=== PATIENT | female | born 1990 | race Caucasian/White ===

== ENCOUNTER 2024-05-03 15:14 | Outpatient (CLI) | payer BC, OTHER, SELFPAY ==
--- NOTE | ~2024-05-03 | US_ITS ---
EXAMINATION: US soft tissue LE RT DATE: 05/03/2024 15:39 INDICATION: Localized swelling, mass and lump, right lower limb. TECHNIQUE: Multiple grayscale and Doppler ultrasound images of the right lower limb were obtained. COMPARISON: None FINDINGS: There is no abnormal mass in the patient's area of concern in right lower limb. IMPRESSION: 1. No abnormal mass in the patient's area of concern in right lower limb. Reviewed, dictated and finalized at location A.
== END 2024-05-03 15:15 ==
PROVIDERS: PCP Registered Nurse; Visit Provider Registered Nurse
DX: R22.41 Localized swelling, mass and lump, right lower limb (principal)
CPT/HCPCS: 76882

== ENCOUNTER 2025-06-08 08:59 | Emergency (ER) | payer BC, OTHER, SELFPAY ==
--- OUTSIDE RECORDS SUMMARY | 2025-06-08 09:04 | XMS_ITS | Encounter Summary ---
Author Organization [facility] Address [address] [place] [address] Care Team Providers Care Advertisement Compositor Name Role Phone Kyle Rolle MD Unavailable [phone] Heather Roger NP Primary Care Provider [phone] Encounter Details Date Type Department Care Team (Latest Contact Info) Description 10/19/2024 Bill.Forwardt Message Enc [facility] Multispecialty Care - [place] [address] [place], [place] [id number] Heather Roger NP [address] [place] [address] Shot for migraines Social History Tobacco Use Types Packs/Day Years Used Date Smoking Tobacco: Never Smokeless Tobacco: Never Alcohol Use Standard Drinks/Week Comments Not Currently 0 (1 standard drink = 0.6 oz pur e alcohol) PHQ-2 Answer Date Recorded Patient Health Questionnaire-2 Score 0 03/06/2023 Comments No Sex and Gender Information Value Date Recorded Sex Assigned at Female 01/19/2025 9:48 AM RETAIL MANAGER IN TRAINING Legal Sex Female 11:05 PM CDT Gender Identity Female 01/21/2025 3:09 PM RETAIL MANAGER IN TRAINING Sexual Orientation Straight 01/21/2025 3: 09 PM RETAIL MANAGER IN TRAINING 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 [place] [address] Heather Roger NP [address] [place] [address] documented as of this encounter Visit Diagnoses Not on filedocumented in this encounter Additional Health Concerns Infection Onset Date Last Indicated Resolved Time Respiratory Rule Out 03/04/2025 03/04/2025 025 12:00 PM CDT documented as of this encounter Care Teams Advertisement Compositor Relationship Specialty Start Date End Date Heather Roger NP [address] [place] [address] PCP - General NURSE PRACTITIONER 09/17/24 Kyle Rolle MD [facility] [address] [place] [address] [place] Guard Chief CARDIOVASCULAR DISEASE 05/01/16 documented as of this encounter
--- OUTSIDE RECORDS SUMMARY | 2025-06-08 09:04 | XMS_ITS | Referral Summary ---
Author Organization [facility] Address [address] [place] [id number] Care Team Providers Care Child Development Teacher Name Role Phone Heather Roger NP Primary Care Provider [phone] Allergies No known active allergies Medications ibuprofen (ADVIL,MOTRIN) 800 mg tablet Take 1 tablet (800 mg total) by mouth 3 (three) times a day 21 tablet 05/22/2019 Active Social History Tobacco Use Types Packs/Day Years Used Date Smoking Tobacco: Never Smokeless Tobacco: Never Personal Safety Answer Date Recorded Getting School Help Needed Not on file 07/18 Comments No Sex and Gender Information Value Date Recorded Sex Assigned at Not on file Legal Sex Female 12:54 PM EMBROIDERY SUPERVISOR Gender Identity Not on file Sexual Orientation Not on file Last Filed Vital Signs Vital Sign Reading Time Taken Comments Blood Pressure 117/58 06/23/2023 6:28 PM CDT Pulse 61 06/23/2023 6:28 PM CDT Temperature 36.6 C (97.8 F) 06/23/2023 6:28 PM CDT Respiratory Rate 16 06/23/2023 6:28 PM CDT Oxygen Saturation 99% 06/23/2023 6:28 PM CDT Inhaled Oxygen Concentration - - Weight 121.1 kg (267 lb) 06/23/2023 1:38 PM CDT Height 154.9 cm (5' 1) 05/22/2019 6:19 PM CDT Body Mass Index 50.45 05/22/2019 6:19 PM CDT Plan of Treatment Not on file Insurance [employer] [place] Sub[place] Plan / Payer (Ef fective 2017-Present) Name:Yoana Woodruff Relation to Subscriber:Self Name:Yoana Woodruff Payer ID:[id number] (NAIC) Type:BC OTHER Address: [address] [place] [id number] [place] [address] Care Teams Child Development Teacher Relationship Specialty Start Date End Date Heather Roger NP [address] [place] [address] (work) PCP - General Internal Medicine 10/20/24
--- OUTSIDE RECORDS SUMMARY | 2025-06-08 09:04 | XMS_ITS | Encounter Summary ---
Author Organization [facility] Address [address] [place] [address] Care Team Providers Care Associate Professor Of Surgery Name Role Phone Kyle Rolle MD Unavailable [phone] GANG SUPERVISOR Primary Care Provider [phone] None, Provider Primary Care Provider Unavaila ble Heather Roger NP Primary Care Provider [phone]- [phone] Encounter Details Date Type Department Care Team (Late st Contact Info) Description 09/05/2020 Student Loan Herot Message Enc [facility] Family & Internal Medicine [address] [place] [address] Teresa Johnson APNP [facility] [place] [address] Follow Up/Update Social History Tobacco Use Types Packs/Day Years Used Date Smoking Tobacco: Never Smokeless Tobacco: Never Alcohol Use Standard Drinks/Week Comments No 0 (1 standard drink = 0.6 oz pur e alcohol) Comments No Sex and Gender Information Value Date Recorded Sex Assigned at Female 01/19/2025 9:48 AM HIRED WORKER Legal Sex Female 11:05 PM CDT Gender Identity Female 01/21/2025 3:09 PM HIRED WORKER Sexual Orientation Straight 01/21/2025 3: 09 PM HIRED WORKER 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 No / Unsure 08/29/2020 8:43 AM CDT documented as of this encounter Progress Notes * Merle Rios RN - 09/07/2020 9:50 AM CDT Denies the sore throat. Yes she started the medication. * CHRIS Jimenez - 09/06/2020 1:57 PM CDT I'm confused---she has a sore throat or she doesn't? Did she start the GERD medicine? * Merle Rios RN - 09/06/2020 12:10 PM CDT Does the patient report a cough? No Does the patient have a fever? No Does the patient have shortness of breath? No Does the patient have other comorbidities? Persistent headaches, TERENCE, HTN, GERD, Obesity Did the patient travel in last 30 days? No Does the patient report body aches: no Does the patient report Chills: no Does the patient report diarrhea: no Does the patient report a headache: not different normal Sore throat: no Did the patient travel to a COVID-19 affected area? No Has the patient been in contact with someone who has had a cough, fever, or traveled? No Has the patient been exposed to a confirmed positive COVID-19 case? No She has to spray a heavy duty disinfectant every day at work and it is a strong bleach smell and she is wondering if this is irritating her throat. documented in this encounter Plan of Treatment Upcoming Encounters Date Type Department Care Team (Late st Contact Info) Description 08/22/2025 10:00 AM CDT Office Visit [facility] Multispecialty Care - [address] [place] [address] Heather Roger NP [address] [place] [address] documented as of this encounter Visit Diagnoses Not on filedocumented in this encounter Additional Health Concerns Infection Onset Date Last Indicated Resolved Time COVID-19 Rule Out 12/04/2022 12/04/2022 12/04/2022 9:20 AM HIRED WORKER COVID-19 Rule Out 12/04/2022 12/04/2022 12/05/2022 2:30 AM HIRED WORKER COVID-19 Rule Out 09/17/2024 09/17/2024 09/17/2024 2:46 PM CDT Respiratory Rule Out 03/04/2025 03/04/2025 025 12:00 PM CDT documented as of this encounter Care Teams Associate Professor Of Surgery Relationship Specialty Start Date End Date Heather Roger, ROAD GANG SUPERVISOR [address] [facility] [address] [place] [address] PCP - General NURSE PRACTITIONER 08/11/24 08/22/24 None, MD Geovanni PCP - General UNKNOWN PHYSICIAN SPECIALTY 08/01/24 08/10/24 Heather Roger, CELESTINE [address] [facility] [address] [place] [address] PCP - General NURSE PRACTITIONER 09/17/24 Kyle Rolle MD [facility] [address] [place] [address] [place] Firer/Fireman CARDIOVASCULAR DISEASE 05/01/16 documented as of this encounter
--- OUTSIDE RECORDS SUMMARY | 2025-06-08 09:04 | XMS_ITS | Clinical Summary ---
Author Organization [facility] Address [address] Hulln: Epic Prelude ADT AKILAH GILMAN [address] Care Team Providers Care Actuary Name Role Phone Unavailable Primary Care Provider Unavailabl e Social History Tobacco Use Types Packs/Day Years Used Date Smoking Tobacco: Never Assessed Comments Unknown Sex and Gender Information Value Date Recorded Sex Assigned at Not on file Legal Sex Female 1:43 AM CDT Gender Identity Not on file Sexual Orientation Not on file Plan of Treatment Health Maintenance Due Date Last Done Comments DTAP/TDAP/TD VACCINES (1 - Tdap) 2008 HEPATITIS B VACCINES (1 of 3 - 19+ 3-dose series) 2008 HPV/Cotest (21-29) 2010 CERVICAL CANCER SCREENING 2019 HPV/Cotest (30-65) 2019 PAP SMEAR 2019 INFLUENZA VACCINE (#1) 2025 HPV VACCINES Aged Out No longer eligi ble based on patient's age to complete this topic
--- OUTSIDE RECORDS SUMMARY | 2025-06-08 09:04 | XMS_ITS | Encounter Summary ---
Author Organization [facility] Address [address] [place] [address] Care Team Providers Care Lead Programmer Name Role Phone Kyle Rolle MD Unavailable [phone] Heather Roger ADULT CARE MANAGER Primary Care Provider [phone] None, Provider Primary Care Provider Unavaila ble Heather Roger NP Primary Care Provider [phone] Encounter Details Date Type Department Care Team (Late st Contact Info) Description 01/15/2019 Abstract [facility] at [address] [address] Priti Parker MA Social History Tobacco Use Types Packs/Day Years Used Date Smoking Tobacco: Never Smokeless Tobacco: Never Alcohol Use Standard Drinks/Week Comments No 0 (1 standard drink = 0.6 oz pur e alcohol) Comments Unknown Sex and Gender Information Value Date Recorded Sex Assigned at Female 01/19/2025 9:48 AM DINING ROOM SERVER Legal Sex Female 11:05 PM CDT Gender Identity Female 01/21/2025 3:09 PM DINING ROOM SERVER Sexual Orientation Straight 01/21/2025 3: 09 PM DINING ROOM SERVER 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 Not on file Not on file Not on file Not on file Not on file Not on file documented as of this encounter Plan of Treatment Upcoming Encounters Date Type Department Care Team (Late st Contact Info) Description 08/22/2025 10:00 AM CDT Office Visit [facility] [address] [place] [address] Heather Roger N, ADULT CARE MANAGER [address] [facility] [address] [place] [address] documented as of this encounter Procedures Procedure Name Priority Date/Time Associated Diagnosis Comments BASIC METABOLIC PANEL Routine 09/04/2019 BASIC METABOLIC PANEL Routine 01/14/2019 documented in this encounter Results * (ABNORMAL) BASIC METABOLIC PANEL (09/04/2019) SODIUM S/P/B 139 135 - 146 POTASSIUM S/P/B 3.6 3.5 - 5.3 CO2 26 20 - 32 CHLORIDE S/P/B 100 98 - 110 GLUCOSE 86 65 - 99 mg/dL CALCIUM S/P/B 9.2 8.6 - 10.2 BUN 18 7 - 25 CREATININE S/P/B 0.74 0.5 - 1.0 EGFR AFR. AMER. 127(A) <=90 EGFR NON-AFR. AMER. 109(A) <=90 09/04/2019 us Doc [facility] Abstract LABORATORY Edited Resul t - Final * (ABNORMAL) BASIC METABOLIC PANEL (01/14/2019) SODIUM S/P/B 138 POTASSIUM S/P/B 3.2 3.5 - 5.3 CO2 30 CHLORIDE S/P/B 98 GLUCOSE 96 mg/dL CALCIUM S/P/B 9.3 BUN 17 CREATININE S/P/B 0.8 0.5 - 1.0 EGFR AFR. AMER. 115(A) <=90 EGFR NON-AFR. AMER. 100(A) <=90 01/14/2019 us Doc [facility] Abstract LABORATORY Final Result documented in this encounter Visit Diagnoses Not on filedocumented in this encounter Additional Health Concerns Infection Onset Date Last Indicated Resolved Time COVID-19 Rule Out 12/04/2022 12/04/2022 12/04/2022 9:20 AM DINING ROOM SERVER COVID-19 Rule Out 12/04/2022 12/04/2022 12/05/2022 2:30 AM DINING ROOM SERVER COVID-19 Rule Out 09/17/2024 09/17/2024 09/17/2024 2:46 PM CDT Respiratory Rule Out 03/04/2025 03/04/2025 025 12:00 PM CDT documented as of this encounter Care Teams Lead Programmer Relationship Specialty Start Date End Date Heather Roger, ADULT CARE MANAGER [address] [place] [address] PCP - General NURSE PRACTITIONER 08/11/24 08/22/24 None, ProviderMD PCP - General UNKNOWN PHYSICIAN SPECIALTY 08/01/24 08/10/24 Heather Roger NP [address] [place] [address] PCP - General NURSE PRACTITIONER 09/17/24 Kyle Rolle MD [facility] [address] [place] [address] [place] Destination Imagination Coordinator CARDIOVASCULAR DISEASE 05/01/16 documented as of this encounter
--- OUTSIDE RECORDS SUMMARY | 2025-06-08 09:04 | XMS_ITS | Clinical Summary ---
Author Organization [facility] Address [address] [place] [address] Phone Care Team Providers Care Employment Specialist Name Role Phone Sanjay Bruner MD Primary Care Provider Social History Tobacco Use Types Packs/Day Years Used Date Smoking Tobacco: Never Assessed Comments Unknown Sex and Gender Information Value Date Recorded Sex Assigned at Not on file Legal Sex Female 12:00 AM CDT Gender Identity Not on file Sexual Orientation Not on file Plan of Treatment Health Maintenance Due Date Last Done Comments Hepatitis C Virus (HCV) Screening 1989 TdaP Immunization 1989 Human Papillomavirus (HPV) Immunization (1 - 3-dose series) 2004 Hepatitis B Immunization (1 of 3 - 19+ 3-dose series) 2008 Pap Smear 2010 Cervical Cancer Screening (CCS) 2019 HPV/Cotest 2019 SARS-COV-2 Immunization (2023-25 season) 2024 Influenza Immunization (#1) 2025 Respiratory Syncytial Virus (RSV) Immunization (Adult) (1 - 1-dose 75+ series) 2064 Meningococcal Immunization (ACWY) Aged Out No longer eligible based on patient's age to complete this topic Pneumococcal Immunization Combined Aged Out No longer eligible based on patient's age to complete this topic Rotavirus Immunization Aged Out No lo nger eligible based on patient's age to complete this topic Insurance Care Teams Employment Specialist Relationship Specialty Start Date End Date Sanjay Bruner MD [address] [place] [address] PCP - General Family Medicine 12/25/17
--- OUTSIDE RECORDS SUMMARY | 2025-06-08 09:04 | XMS_ITS | Encounter Summary ---
Author Organization [facility] Address [address] [place] [address] Care Team Providers Care Wheel Of Fortune Dealer Name Role Phone Kyle Rolle MD Unavailable [phone] Heather Roger NON LICENSED OPERATOR Primary Care Provider [phone] None, Provider Primary Care Provider Unavaila ble Heather Roger NP Primary Care Provider [phone]- [phone] Encounter Details Date Type Department Care Team (Latest Contact Info) Description 03/01/2020 Designer Material Message [facility], [address] [place] [id number] Nargis Corral PA-C [address] [facility], [address] [place], [place] [id number] Appointment with Dr. 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 [place] [address] Heather Roger, NON LICENSED OPERATOR [address] [place] [address] documented as of this encounter Visit Diagnoses Not on filedocumented in this encounter Additional Health Concerns Infection Onset Date Last Indicated Resolved Time COVID-19 Rule Out 12/04/2022 12/04/2022 12/04/2022 9:20 AM ASSOCIATE RESEARCH SCIENTIST COVID-19 Rule Out 12/04/2022 12/04/2022 12/05/2022 2:30 AM ASSOCIATE RESEARCH SCIENTIST COVID-19 Rule Out 09/17/2024 09/17/2024 09/17/2024 2:46 PM CDT Respiratory Rule Out 03/04/2025 03/04/2025 025 12:00 PM CDT documented as of this encounter Care Teams Wheel Of Fortune Dealer Relationship Specialty Start Date End Date Heather Roger, NON LICENSED OPERATOR [address] [place] [address] PCP - General NURSE PRACTITIONER 08/11/24 08/22/24 None, Geovanni, PCP - General UNKNOWN PHYSICIAN SPECIALTY 08/01/24 08/10/24 Heather Roger, NON LICENSED OPERATOR [address] [place] [address] PCP - General NURSE PRACTITIONER 09/17/24 Kyle Rolle MD [facility]. [facility] [address] [place] [address] [place] Chemistry Research Assistant CARDIOVASCULAR DISEASE 05/01/16 documented as of this encounter
--- OUTSIDE RECORDS SUMMARY | 2025-06-08 09:04 | XMS_ITS | Clinical Summary ---
Author Organization [facility] Address [address] [place] [address] Care Team Providers Care Technical Sales Associate Name Role Phone Heather Roger NP Primary Care Provider [phone] Allergies No known active allergies Medications ibuprofen [...] on file Legal Sex Female 12:54 PM SEMICONDUCTOR LAB TECHNICIAN Gender Identity Not on file Sexual Orientation Not on file Obstetrics History Last Filed Vital Signs Vital Sign Reading [...] 05/22/2019 6:19 PM CDT Plan of Treatment Health Maintenance Due Date Last Done Comments Cervical Cancer Screening 1989 Depression Screening 1989 Hepatitis C Screening 1989 DTaP/Tdap/Td Vaccine (1 - Tdap) 2000 Varicella Vaccines (1 of 2 - 13+ 2-dose series) 2002 Hepatitis B Screening 2007 Regular Well Visit/Exam 18-64 2007 Influenza Vaccine (Season Ended) 2025 09/02/20 18 HPV Vaccines Aged Out No longer eligi ble based on patient's age to complete this topic Pneumococcal vaccine <65 Aged Out No longer eligible based on patient's age to complete this topic [place] [employer] [place] [employer] [place] [id number] Care Teams Technical Sales Associate Relationship Specialty Start Date End Date Heather Roger NP [address] [facility] [address] [place] [address] PCP - General Internal Medicine 10/20/24
--- OUTSIDE RECORDS SUMMARY | 2025-06-08 09:04 | XMS_ITS | Encounter Summary ---
Author Organization [facility] Address [address] [place] [address] Care Team Providers Care Site Leader Name Role Phone Kyle Rolle MD Unavailable [phone] Heather Roger NP Primary Care Provider [phone] Encounter Details Date Type Department Care Team (Late Contact Info) Description 03/08/2025 Buyapowahart Message Enc [facility] Multispecialty Care - [place] [address] [place] [address] Heather Roger, CELESTINE [address] [facility] [address] [place] [address] Steroid medicine Social History Tobacco Use Types Packs/Day Years Used Date Smoking Tobacco: Never Smokeless Tobacco: Never Alcohol Use Standard Drinks/Week Comments Not Currently 0 (1 standard drink = 0.6 oz pur e alcohol) PHQ-2 Answer Date Recorded Patient Health Questionnaire-2 Score 0 03/04/2025 Comments No Sex and Gender Information Value Date Recorded Sex Assigned at Female 01/19/2025 9:48 AM ROLLED SEAT TRIMMER Legal Sex Female 11:05 PM CDT Gender Identity Female 01/21/2025 3:09 PM ROLLED SEAT TRIMMER Sexual Orientation Straight 01/21/2025 3: 09 PM ROLLED SEAT TRIMMER 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 [place] [address] Heather Roger NP [address] [facility] [address] [place] [address] documented as of this encounter Visit Diagnoses Not on filedocumented in this encounter Additional Health Concerns Assessment Noted Time PHQ-9 Depression Total Score: 3 03/04/20 25 10:53 AM CDT documented as of this encounter Care Teams Site Leader Relationship Specialty Start Date End Date Heather Roger NP [address] [place] [address] PCP - General NURSE PRACTITIONER 09/17/24 Kyle Rolle MD [facility] [address] [place] [address] [place] Data Analytics Developer CARDIOVASCULAR DISEASE 05/01/16 documented as of this encounter
--- OUTSIDE RECORDS SUMMARY | 2025-06-08 09:05 | XMS_ITS | Encounter Summary ---
Author Organization [facility] Address [address] [place] [address] Care Team Providers Care Movie Editor Name Role Phone Kyle Rolle MD Unavailable [phone] Heather Roger NP Primary Care Provider [phone] Encounter Details Date Type Department Care Team (Late Contact Info) Description 09/17/2024 [place] Message Enc [address] [place] [address] [place], [facility] Provider appt Social History Tobacco Use Types Packs/Day Years Used Date Smoking Tobacco: Never Smokeless Tobacco: Never Alcohol Use Standard Drinks/Week Comments Not Currently 0 (1 standard drink = 0.6 oz pur e alcohol) PHQ-2 Answer Date Recorded Patient Health Questionnaire-2 Score 0 03/06/2023 Comments No Sex and Gender Information Value Date Recorded Sex Assigned at Female 01/19/2025 9:48 AM PASTE UP COPY CAMERA OPERATOR Legal Sex Female 11:05 PM CDT Gender Identity Female 01/21/2025 3:09 PM PASTE UP COPY CAMERA OPERATOR Sexual Orientation Straight 01/21/2025 3: 09 PM PASTE UP COPY CAMERA OPERATOR 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 Not on file Not on file Not on file Not on file Not on file Not on file documented as of this encounter Plan of Treatment Upcoming Encounters Date Type Department Care Team (Late st Contact Info) Description 08/22/2025 10:00 AM CDT [facility] [place] [address] [address] [place], [place] [id number] eHather Roger, AUTO SERVICE STATION ATTENDANT [address] [place] [address] documented as of this encounter Visit Diagnoses Not on filedocumented in this encounter Additional Health Concerns Infection Onset Date Last Indicated Resolved Time COVID-19 Rule Out 09/17/2024 09/17/2024 09/17/2024 2:46 PM CDT Respiratory Rule Out 03/04/2025 03/04/2025 025 12:00 PM CDT documented as of this encounter Care Teams Movie Editor Relationship Specialty Start Date End Date Heather Roger NP [address] [place] [address] PCP - General NURSE PRACTITIONER 09/17/24 Kyle Rolle MD [facility]. [facility] [address] [place] [address] [place] Miniature Set Constructor CARDIOVASCULAR DISEASE 05/01/16 documented as of this encounter
--- OUTSIDE RECORDS SUMMARY | 2025-06-08 09:05 | XMS_ITS | Encounter Summary ---
Author Organization [facility] Address [address] [place] [address] Care Team Providers Care Cash On Delivery Clerk Name Role Phone Kyle Rolle MD Unavailable [phone] Heather Roger NP Primary Care Provider [phone] Encounter Details Date Type Department Care Team (Late Contact Info) Description 10/22/2024 [employer] [facility] [place] [address] [address] [facility] [address] [place] [address] Sindhu, [facility] Provider medication Social History Tobacco Use Types Packs/Day Years Used Date Smoking Tobacco: Never Smokeless Tobacco: Never Alcohol Use Standard Drinks/Week Comments Not Currently 0 (1 standard drink = 0.6 oz pur e alcohol) PHQ-2 Answer Date Recorded Patient Health Questionnaire-2 Score 0 03/06/2023 Comments No Sex and Gender Information Value Date Recorded Sex Assigned at Female 01/19/2025 9:48 AM SEAT COVERER Legal Sex Female 11:05 PM CDT Gender Identity Female 01/21/2025 3:09 PM SEAT COVERER Sexual Orientation Straight 01/21/2025 3: 09 PM SEAT COVERER 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 Not on file Not on file Not on file Not on file Not on file Not on file documented as of this encounter Plan of Treatment Upcoming Encounters Date Type Department Care Team (Late st Contact Info) Description 08/22/2025 10:00 AM CDT Office Visit [facility] [place] [address] [address] [facility] [facility] [address] [address] [place], [place] [id number] Heather Roger, MUNITIONS HANDLER [address] [place] [address] documented as of this encounter Visit Diagnoses Not on filedocumented in this encounter Additional Health Concerns Infection Onset Date Last Indicated Resolved Time Respiratory Rule Out 03/04/2025 03/04/2025 025 12:00 PM CDT documented as of this encounter Care Teams Cash On Delivery Clerk Relationship Specialty Start Date End Date Heather Roger, MUNITIONS HANDLER [address] [place] [address] PCP - General NURSE PRACTITIONER 09/17/24 Kyle Rolle MD [facility]. [facility] [address] [place] [address] [place] Rn New Grad CARDIOVASCULAR DISEASE 05/01/16 documented as of this encounter
--- OUTSIDE RECORDS SUMMARY | 2025-06-08 09:05 | XMS_ITS | Clinical Summary ---
Author Organization [facility] Address [facility] [place] [address] Care Team Providers Care Dot Net Developer Name Role Phone Kyle Rolle MD Unavailable Heather Roger NP Primary Care Provider [phone] Allergies Active Allergy Reactions Criticality Noted Date Comments Morphine And Codeine Other (see comment) 2015 Advised per parent Penicillins Other (see comment) 08/26/2016 Advised per parent, childhood Sulfamethoxazole-Trime thoprim Rash Low 08/26/2016 Acetaminophen-Codeine Nausea Only 09/03/2019 Medications omeprazole 40 MG capsule omeprazole 40 mg capsule,delay ed release TAKE 1 CAPSULE BY MOUTH 30 MINUTES BEFORE BREAKFAST FOR 30 DAYS Active cyclobenzaprine (FLEXERIL) 5 MG tabletIndications :Strain of right trapezius muscle, initial encounter Take 1 to 2 tablets by mouth at bedtime as needed for muscle spasm. 60 tablet 1 024 Active ibuprofen (MOTRIN) 600 MG tabletIndications :Costochondritis, Acute cough Take 1 tablet (600 mg total) by mouth every 6 (six) hours as needed. 120 tablet 1 024 Active ondansetron (ZOFRAN-ODT) 4 MG disintegrating tabletIndications :Migraine with aura and without status migrainosus, not intractable Take 1 tablet (4 mg total) by mouth every 6 (six) hours as needed for Nausea. 60 tablet 2 024 Active Galcanezumab-gnlm (EMGALITY) 120 MG/ML Solution Auto-injectorIndi cations:Migraine with aura and without status migrainosus, not intractable Inject 120 mg into the skin every 30 (thirty) days. 3 mL 2 025 Active azelastine 0.1 % nasal sprayIndications: Nasal congestion 2 sprays by Nasal route 2 (two) times daily as needed for Rhinitis. Use in each nostril as directed 10 mL 3 025 Active sertraline (ZOLOFT) 100 MG tabletIndications :Recurrent major depressive disorder, in full remission,Anxiety Take 1 tablet (100 mg total) by mouth daily. 30 tablet 2 025 Active metoprolol succinate ER (TOPROL-XL) 50 MG 24 hr tabletIndications :PVC (premature ventricular contraction) Take 1 tablet (50 mg total) by mouth daily. 90 tablet 1 025 Active ubrogepant (UBRELVY) 100 MG tabletIndications :Migraine with aura and without status migrainosus, not intractable Take 1 tab by mouth at migraine onset, may repeat dose in 2 hours. Max of 2 tablets (200 mg) in 24 hours 10 tablet 1 025 Active ubrogepant (UBRELVY) 100 MG tabletIndications :Migraine with aura and without status migrainosus, not intractable Take 1 tab by mouth at migraine onset, may repeat dose in 2 hours. Max of 2 tablets (200 mg) in 24 hours 10 tablet 3 025 2024 Discontinued(R eorder) methylPREDNISolon e, VARSHA, (MEDROL DOSEPAK) 4 MG tabletIndications :Non-recurrent acute serous otitis media of both ears Take as directed 1 each 025 2024 Discontinued metoprolol succinate ER (TOPROL-XL) 50 MG 24 hr tablet TAKE 1 TABLET BY MOUTH TWICE DAILY (CALL FOR APPOINTMENT) 15 tablet 025 2024 Discontinued(R eorder) Active Problems Problem Noted Date Diagnosed Date Migraine with aura and witho ut status migrainosus, not intractable 08/11/2024 Recurrent major depressive disorder, in full rem ission 08/11/2024 Anxiety 08/11/2024 Fatigue, unspecified type 08/11/2024 PVC (premature ventricular contraction) 02/16/20 Gastroesophageal reflux disease without esophagi tis 01/27/2019 Dyspnea on exertion 01/27/2019 Arthralgia of right temporomandibular joint 03/01 Morbid obesity with body mass index of 40.0-44.9 in adult 05/20/2017 Thoracic back pain 05/20/2017 Chronic daily headache 02/03/2017 Persistent headaches 12/26/2014 Palpitations Essential hypertension Resolved Problems Problem Noted Date Diagnosed Date Resolved Date Other chest pain 01/27/2019 08/11/2024 TERENCE (obstructive sleep apnea) 01/01/2019 01/23/2025 Encounter for preventive health examination 12/26/2014 08/11/2020 Encounters Date Type Department Care Team Description 05/26/2025 Orders Only [facility] Care - [place] [id number] [facility] [address] [place] [address] Justina Herrera LPN 05/24/2025 Telephone [facility] [place] [address] [place] [address] Heather Roger NP Record Request 05/23/2025 4:40 PM CDT Telemedicine [facility] - [place] [address] [place] [address] Heather Roger NP Medication Check from Last 3 Months Family History Medical History Relation Comments Arthritis Father Heart Disease Father Cancer Maternal Grandfather Cancer Maternal Grandmother Breast Cancer Mother Cancer Mother Hypertension Mother no premature coronary artery disease Other Relation Status Comments Father Maternal Grandfather Maternal Grandmother Mother Other Alive Social History Tobacco Use Types Packs/Day Years Used Date Smoking Tobacco: Never Smokeless Tobacco: Never Tobacco Cessation:Counseling Given: No Alcohol Use Standard Drinks/Week Comments Not Currently 0 (1 standard drink = 0.6 oz pur e alcohol) PHQ-2 Answer Date Recorded Patient Health Questionnaire-2 Score 0 03/04/2025 Comments No Sex and Gender Information Value Date Recorded Sex Assigned at Female 01/19/2025 9:48 AM WIRE FRAME LAMPSHADE MAKER Legal Sex Female 11:05 PM CDT Gender Identity Female 01/21/2025 3:09 PM WIRE FRAME LAMPSHADE MAKER Sexual Orientation Straight 01/21/2025 3: 09 PM WIRE FRAME LAMPSHADE MAKER 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 Not on file Not on file Not on file Not on file Not on file Not on file Last Filed Vital Signs Vital Sign Reading Time Taken Comments Blood Pressure 136/84 03/04/2025 9:29 AM CDT Pulse 73 03/04/2025 9:29 AM CDT Temperature 36.2 C (97.2 F) 03/04/2025 9:29 AM CDT Respiratory Rate 18 03/04/2025 9:29 AM CDT Oxygen Saturation 97% 03/04/2025 9:29 AM CDT Inhaled Oxygen Concentration - - Weight 122.5 kg (270 lb) 05/23/2025 4:50 PM CDT Height 154.9 cm (5' 1) 05/23/2025 4:50 PM CDT Body Mass Index 51.02 05/23/2025 4:50 PM CDT Plan of Treatment Upcoming Encounters Date Type Department Care Team (Late st Contact Info) Description 08/22/2025 10:00 AM CDT [facility] Visit [facility] [place] [address] [place] [address] Heather Roger, SUGAR BOILER [address] [place] [address] Health Maintenance Due Date Last Done Comments Cervical Cancer Screening Pa p Smear (Age 30 to 64) Every 3 Years 1989 DTaP, Tdap and Td Vaccines ( 1 - Tdap) 2008 Hepatitis B Vaccines (1 of 3 - 19+ 3-dose series) 2008 COVID-19 Vaccine ( - 2023-2 5 season) 2024 Annual Physical 08/11/2025 08/11/2024 Cervical Cancer Screening Pa p with HPV Testing (Age 30 to 64) Every 5 Years 06/10/2029 06/10/2024 Cervical Cancer Screening with HPV 06/10/2029 Hepatitis C Completed 08/11/2024 PHQ-2 (Physician [place]) Completed 03/04/2025 HPV Vaccines Aged Out No longer eligi ble based on patient's age to complete this topic Meningococcal B Vaccine Aged Out No l onger eligible based on patient's age to complete this topic Meningococcal Vaccine Aged Out No zeynep shahida eligible based on patient's age to complete this topic Pneumococcal Vaccine: Pediat rics (0 to 5 Years) and At-Risk Patients (6 to 49 Years) Aged Out No longer eligi ble based on patient's age to complete this topic RSV Immunizations Under 20 Months Aged Out No longer eligible based on patient's age to complete this topic Procedures Procedure Name Priority Date/Time Associated Diagnosis Comments HEPATITIS C ANTIBODY W/RFX TO HCV RNA Routine 08/11/2024 2:34 PM CDT Need for hepatitis C screening test OUTSIDE CYTOPATH CERV/VAG INTERPRET (PAP) 06/10/2024 from Last 3 Months or Most Recently Relevant to Health Maintenance Results * HEPATITIS C ANTIBODY W/RFX TO HCV RNA ([facility] ONLY) (08/11/2024 2:34 PM CDT) HEPATITIS C AB NON-REACT NORMA NON-REACT NORMA [facility] Comment: HCV antibody was non-reactive. There is no laboratory evidence of HCV infection. In most cases, no further action is required. However, if recent HCV exposure is suspected, a test for HCV RNA (test code 37357) is suggested. For additional information please refer to http://education.buildabrand/faq/RZX78r5 (This link is being provided for informational/ educational purposes only.) 08/11/2024 2:34 PM CDT 08/12/2024 8:25 AM CDT Narrative Resulting Agency Comment Performing Organization Information: Site ID: [id number] Name: [facility] Address: [address] [place] [address] Director: Millie Garber MD us Heather Roger NP LABORATORY Final Resul t [employer] [facility] [address] [place] [address], * PAP SMEAR WITH HPV (06/10/2024) 06/10/2024 us [facility] Scanned SCANNING Final Resu lt from Last 3 Months or Most Recently Relevant to Health Maintenance Insurance [facility] Care Teams Dot Net Developer Relationship Specialty Start Date End Date Acacia, Heather N, SUGAR BOILER [address] [facility] [address] [place] [address] PCP - General NURSE PRACTITIONER 09/17/24 Kyle Rolle MD [facility]. [facility] [address] [place] [address] [place] Pattern Drafter CARDIOVASCULAR DISEASE 05/01/16
[2025-06-08 09:08] VITALS: BP 123/81; PULSE 80; RESP 16; TEMP 36.2; O2SAT 100
--- NOTE | 2025-06-08 09:25 | PC.NURSE ---
POISON CONTROL CALLED AND SPOKE WITH ULISES. RECOMMENDATIONS RECEIVED FOR THIS TYPE OF EXPOSURE.
[2025-06-08] MEDS: TETRACAINE HCL 0.5% OPHTH SOLN 4 ML BTL 1 DROP LEFT EYE (10:02)
[2025-06-08] MEDS: NACL 0.9% IRRIG BAG 1,000 ML 999 ML IRRIGATION (10:06)
--- NOTE | 2025-06-08 10:08 | ED.EYEPROB ---
HPI - Eye Problem General Chief complaint: Eye Problems Stated complaint: Chemical Substance in Eye Time Seen by Provider: 06/08/25 09:55 Source: patient and RN notes reviewed Mode of arrival: ambulatory Limitations: no limitations History of Present Illness HPI Narrative: 34-year-old female presents concern for injury to her left eye. She reports she was cleaning when she got a, ?cleaning solution in the eye prior to arrival. She reports the eye was burning, reports that has slightly improved since this happened. She denies any vision changes. chief complaint: eye injury Related Data Home Medications ?Medication ?Instructions ?Recorded ?Confirmed ?Last Taken ?Type metoprolol succinate 50 mg mg PO 06/05/23 12/29/24 Unknown History tablet,extended release 24 hr topiramate 25 mg tablet 25 mg PO 06/05/23 12/29/24 Unknown History galcanezumab-gnlm 120 mg/mL mg subcut 12/29/24 12/29/24 Unknown History subcutaneous pen injector (Emgality Pen) ubrogepant 100 mg tablet (Ubrelvy) 100 mg PO 12/29/24 12/29/24 Unknown History sertraline 100 mg tablet mg 06/08/25 Unknown History Allergies Allergy/AdvReac Type Severity Reaction Status Date / Time codeine Allergy Intermediate Anxiety Verified 06/08/25 09:28 Penicillins Allergy Mild Hives Verified 06/08/25 09:28 sulfamethizole Allergy Unknown Unknown Verified 06/08/25 09:28 trimethoprim Allergy Unknown Unknown Verified 06/08/25 09:28 Review of Systems Review of Systems: CONSTITUTIONAL: Denies malaise, chills, sweats, or fever. EYES: Denies visual changes. Reports left eye burning. Denies redness or drainage ENT: Denies rhinorrhea, congestion, sinus pain, otalgia or sore throat. SKIN: Denies rash or itching. NEUROLOGIC: Denies numbness, weakness, or headache. PSYCHIATRIC: Denies anxiety or depression. All systems reviewed & are unremarkable except as noted in HPI and below PMFSH Past Medical History Medical History (Updated 06/08/25 @ 10:16 by Yolette Cartagena NP) Migraines Heartburn Anxiety Family History Family History Father Hypertension Heart disease Acute myocardial infarction Diabetes mellitus Mother Family history of malignant neoplasm of breast in first degree relative Social History Social History Smoking status: Never smoker Alcohol intake: never Substance use: never Do You Feel Safe in your Home?: Yes Lack of Transportation: No Lack of Food: Never True Current Housing: I Have Housing Concerned About Future Housing: No Difficulty Paying Gas/Electric Bills: No Difficulty Paying for Meds: No Currently Unemployed: No Education: High School Diploma/GED Difficulty w/ Childcare or Family Care: No Living arrangements: with family Occupation/Education: occupation Gender identity (if verbalized by the patient): Female Sexual Orientation (if Verbalized by the Patient): Straight or Heterosexual Comments At time of signature, agree with nursing past medical, surgical, social and family history. There is no relevant family history pertinent to the presenting complaint Exam Narrative: GENERAL: Well-appearing, well-nourished, and in no acute distress. HEAD: Normocephalic, atraumatic. EYES: PERRLA and EOMI. No nystagmus. Bilateral sclera and conjunctivae clear. Upper and lower eyelid unremarkable, no periorbital edema noted ENT: Nares clear, turbinates pink, no rhinorrhea or epistaxis. Mucous membranes moist. TM pearly lynn with sharp light reflex bilaterally; no tragal tenderness. NECK: Supple. CHEST: No respiratory distress. Speaks in full sentences. HEART: Regular rate and rhythm. SKIN: Warm, dry, no visible rash. NEURO: Alert and oriented x3. PSYCH: Normal mood and affect Course Course Emergency Course: Patient is aware of diagnosis, understands and agrees to treatment plan. Anticipatory guidance given. Patient agrees to follow-up as directed and is aware of reasons to seek care at the emergency department. Portions of this record may have been created with voice recognition software Level of Care: Express Care Visit Vital Signs Vital signs: Vital Signs Temperature 97.1 F L 06/08/25 09:08 Pulse Rate 80 06/08/25 09:08 Respiratory Rate 16 06/08/25 09:08 Blood Pressure 123/81 06/08/25 09:08 Pulse Oximetry 100 06/08/25 09:08 Oxygen Delivery Room Air 06/08/25 09:08 Temperature 97.1 F L 06/08/25 09:08 Pulse Rate 80 06/08/25 09:08 Respiratory Rate 16 06/08/25 09:08 Blood Pressure 123/81 06/08/25 09:08 Pulse Oximetry 100 06/08/25 09:08 Oxygen Delivery Room Air 06/08/25 09:08 Reviewed. Procedures Other Procedure Procedure 1: Other Procedure: Tetracaine 1 gtt instilled in left eye. Edgar lens insterted, 1000 ml flush. 1 gtt instilled after flush, for seen stain applied. Corneal abrasion noted upon adams lamp exam at approximately 9 o'clock in relation to the pupil. No foreign bodies or George sign noted. MDM - Eye Problem MDM Narrative Medical decision making narrative: Consideration of the following conditions may be warranted for the presenting problem, they are not final diagnoses: Bacterial conjunctivitis, allergic conjunctivitis, viral conjunctivitis, foreign body, blepharitis, chalazion, hordeolum, corneal abrasion, preseptal cellulitis, orbital cellulitis. No evidence of proptosis, ophthalmoplegia, vision loss, pain with eye movement. Exam findings show no acute concerns or changes; patient is non-toxic appearing and is in no distress. Patient is appropriate for outpatient treatment and follow-up. Critical Care Time Critical Care Time Critical Care Time: No Discharge Plan Discharge Clinical Impression: Chemical exposure of eye Patient Disposition: Home Condition: Stable Instructions: Chemical Eye Nava (ED) Additional Instructions: Corneal abrasions will heal in 1-2 days. Keep your eye shut and wear sunglasses or stay in low light to avoid light sensitivity. Do not touch or rub your eye or use a fabric patch You may take Tylenol or ibuprofen for pain Follow-up with PCP or dev technical mgr if condition is not improving in 2-3days. Patient Language: Urdu Prescriptions: New ciprofloxacin HCl 0.3 % drops See Rx Instructions .ROUTE .COMPLEX Qty: 2.5 0RF Rx Instructions: put 1-2 drps in affected eye(s) every 6hr for 7 days No Action sertraline 100 mg tablet metoprolol succinate 50 mg tablet extended release 24 hr PO topiramate 25 mg tablet 25 mg PO Ubrelvy 100 mg tablet 100 mg PO Emgality Pen 120 mg/mL pen injector subcut Follow-up/Referrals: Acacia,Heather Mittal, NETWORK PROGRAM MANAGER [Primary Care Provider] - Stand Alone Forms: Work/School Release IP Time of Disposition: 10:47
== END 2025-06-08 10:50 | disposition home or self-care (01) ==
PROVIDERS: Emergency Provider Nurse Practitioner; PCP Nurse Practitioner
DX: Z77.098 Contact with and (suspected) exposure to other hazardous, chiefly nonmedicinal, chemicals (principal); R12 Heartburn; F41.9 Anxiety disorder, unspecified
CPT/HCPCS: 99213; G0463; J7030